=== PATIENT | female | born 1975 | race Caucasian/White ===

== ENCOUNTER → 2017-01-05 | Day surgery (SDC) | payer OTHER ==
--- NOTE | 2017-01-04 10:33 | MH ---
cc: TITO HERNANDEZ MD DATE OF ADMISSION: 01/05/2017 HISTORY OF PRESENT ILLNESS This patent is a 41-year-old white female 3, para 3. She is being admitted to [facility] for treatment of hypermenorrhea. HISTORY OF PRESENT ILLNESS The patient describes having regular bleeding; however, the bleeding can become severe with passage of numerous clots. She was given the option to proceed with ablation therapy and the risks and the failure rates were discussed at length with the patient. Endometrial biopsy was performed prior to the procedure since endometrial thickness was slightly elevated on ultrasound scan examination, the results of the biopsy are not available at this time. PAST MEDICAL HISTORY The patient had a history of Graves disease and received irradiation is presently on supplemental therapy including Synthroid 150 mcg a day. ALLERGIES She has no known allergies to medications. SOCIAL HISTORY She describes herself as a nonsmoker, nondrinker. PAST SURGICAL HISTORY Essentially noncontributory. REVIEW OF SYSTEMS Noncontributory. PHYSICAL EXAMINATION GENERAL: The patient is seen well-developed, well-nourished acute distress. VITAL SIGNS: Blood pressure is 132/84, pulse is 70, respirations 12. HEENT: HEENT is negative. CHEST: Clear to auscultation. CARDIOVASCULAR: Regular rate. ABDOMEN: Soft. Bowel sounds were positive. PELVIC EXAMINATION: The uterus was normal in size. There was no adnexal masses palpable. EXTERNAL GENITALIA: Within normal limits. EXTREMITIES: No cyanosis, clubbing or edema. NEUROPSYCHIATRIC: The patient is oriented x3 and showed no gross neurocranial deficit. IMPRESSION ON ADMISSION Hypermenorrhea. PLAN D&C, hysteroscopy and endometrial ablation. Tito Hernandez MD JSG/SSB /10:09 AM /10:17 AM
[~2017-01-05] VITALS: Ht 172.7 cm; Wt 84.5 kg
[~2017-01-05] MED LIST: *morphine SULFATE 8 MG/ML PERIprocedure ONLY ONE; ACETAMINOPHEN 1000 MG/100 ML 100 ML IV ONE; CHLORHEXIDINE GLUCONATE 2 % 1 PACK (2 CLOTHS) TOPICAL PRN; DEXAMETHASONE SOD PHOS 4 MG/ML VIAL IV ONE; DEXAMETHASONE SOD PHOS 4 MG/ML VIAL ONE; DO NOT ADM ANY ANTICOAGULANT DRUGS PRN; FAMOTIDINE 20 MG/2 ML VIAL ONE; INSULIN HUMAN REGULAR 1,000 UNITS/10 ML VIAL SQ PRN; KETOROLAC TROMETHAMINE 60 MG/2 ML (IM) VIAL IM ONE; LACTATED RINGER'S 1000 ML IV PRN; LEVO.15 PO; LIDOCAINE HCL 1% PF 5 ML AMPULE OTHER ONE; METOPROLOL TARTRATE 25 MG TAB PO PRN; METOPROLOL TARTRATE 5 MG/5 ML VIAL IV PUSH ONE; MIDAZOLAM HCL 2 MG/2 ML VIAL IV ONE; ONDANSETRON HCL 4 MG/2 ML VIAL IV PUSH ONE; ONDANSETRON HCL 4 MG/2 ML VIAL IV PUSH PRN; OXYTOCIN 10 UNIT/ML AMP ONE; POVIDONE IODINE 5% (ANTISEPSIS KIT) 4 APPLICATIONS EACH NARE PRN; PROPOFOL 200 MG/20 ML AMP IV ONE; SODIUM CHLORID 0.9% 500 ML IV PRN; ceFAZolin 2 GM PREMIX 50 ML IV SCH; oxyCODONE/ACETAMINOPHEN 10 MG/325 MG TAB PO PRN; oxyCODONE/ACETAMINOPHEN 5 MG/325 MG TAB PO PRN
[2017-01-05 09:45] VITALS: BP 116/77; PULSE 73; RESP 18; TEMP 97.5; O2SAT 99
--- NOTE | 2017-01-05 09:58 | MP ---
cc: TITO HERNANDEZ MD DATE OF SURGERY 01/05/2017 PREOPERATIVE DIAGNOSIS Hypermenorrhea. POSTOPERATIVE DIAGNOSIS Hypermenorrhea. OPERATION 1. D&C. 2. NovaSure endometrial ablation. 3. Post-ablation hysteroscopy. SURGEON MD Mary ANESTHESIA General. ESTIMATED BLOOD LOSS Minimal. FINDINGS Consistent with a an enlarged uterine cavity. The cavity sounded to 9 cm. COMPLICATIONS None. PATHOLOGY Endometrial curettings. PROCEDURE The patient was prepped and draped in dorsal lithotomy position. Weighted speculum was placed in the postoperative vaginal vault. The anterior lip the cervix was grasped with two single-tooth tenaculums. The endocervical canal was dilated up and then sharp curettings from the endometrial cavity were taken after which the NovaSure ablation unit was inserted in the endometrial cavity. The cavity length and width were used to adjust the machine and then it was set on its heat cycle, after which a hysteroscope was reinserted in the endometrial cavity to make sure that all quadrants of the endometrial cavity had been ablated and the hysteroscope was then removed. The tenaculum and the speculum were removed and the patient returned to the recovery room in stable condition. Tito Hernandez MD JSG/SSB /8:10 AM /9:48 AM
== END | disposition home or self-care (01) ==
LOC: HSDC 05:36
PROVIDERS: ATTEND Obstetrics & Gynecology
DX: N92.0 Excessive and frequent menstruation with regular cycle (principal); E05.00 Thyrotoxicosis with diffuse goiter without thyrotoxic crisis or storm; Z79.899 Other long term (current) drug therapy
CPT/HCPCS: 00952; 58563; 88305; J0131; J0690; J1100; J1885; J2250; J2270; J2405; J3010; J7120; J2590